=== PATIENT | female | born 1930 | race Caucasian/White ===

== ENCOUNTER 2017-11-18 10:05 | Observation (INO) | payer MEDICARE, BC ==
[2017-11-18] MEDS ORDERED: SODIUM CHLORIDE 0.9% 1,000 ML IV ONE (11:06)
--- NOTE | 2017-11-18 11:16 | ED ---
Altered Mental Status HPI - General Chief Complaint: Altered Mental Status Stated Complaint: Confusion Time Seen by Provider: 11/18/17 10:41 Source: patient Mode of arrival: wheelchair Limitations: no limitations - History of Present Illness Initial Comments: Patient is an 87-year-old female with a history of dementia who presents with chief complaint of altered mental status. She is here with her son who provides most of the history. The patient lives at a snf facility. The son states the patient has been displaying odd behavior such as continuously looking for water, and being more forgetful. The patient states that she knows something is off. She cannot think of any inciting incidents of this. There are no aggravating or alleviating factors. Timing is constant. - Related Data Home Medications Medication Instructions Recorded Confirmed Alendronate Sodium [Fosamax] 70 mg PO CARRERA 11/18/17 11/18/17 Aspirin EC [Ecotrin Low Dose] 81 mg PO DAILY 11/18/17 11/18/17 Atorvastatin Calcium [Lipitor] 10 mg PO DAILY 11/18/17 11/18/17 Calcium Carbonate/Vitamin D3 1 tab PO HS 11/18/17 11/18/17 [Calcium 600-Vit D3 400 [place]] Cholecalciferol [Vitamin D3] 1,000 unit PO DAILY 11/18/17 11/18/17 Cilostazol [Pletal] 50 mg PO BID 11/18/17 11/18/17 Donepezil [Aricept] 10 mg PO DAILY 11/18/17 11/18/17 Lisinopril [Prinivil] 10 mg PO DAILY 11/18/17 11/18/17 Multivit-Min/FA/Lycopen/Lutein 1 tab PO HS 11/18/17 11/18/17 [Centrum Silver Tablet] amLODIPine [Norvasc] 5 mg PO DAILY 11/18/17 11/18/17 Allergies Allergy/AdvReac Type Severity Reaction Status Date / Time No Known Allergies Allergy Verified 11/18/17 11:43 Review of Systems ROS Statement: Those systems with pertinent positive or pertinent negative responses have been documented in the HPI. ROS Other: All systems not noted in ROS Statement are negative. 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 removed History of Any Multi-Drug Resistant Organisms: None Reported Past Surgical History: No Surgical Hx Reported Past Psychological History: No Psychological Hx Reported Smoking Status: Never smoker Past Alcohol Use History: None Reported Past Drug Use History: None Reported General Exam Limitations: no limitations General appearance: alert, in no apparent distress Head exam: Present: atraumatic, normocephalic Eye exam: Present: normal appearance ENT exam: Present: normal exam, mucous membranes moist Neck exam: Present: normal inspection Respiratory exam: Present: normal lung sounds bilaterally. Absent: respiratory distress Cardiovascular Exam: Present: regular rate, normal rhythm GI/Abdominal exam: Present: soft. Absent: distended, tenderness Rectal exam: Present: deferred Extremities exam: Present: normal inspection Neurological exam: Present: alert, altered, other (Patient is alert and oriented 1. She has no focal motor deficit. She is able to angulate well without assistance) Psychiatric exam: Present: normal affect, normal mood Skin exam: Present: warm, dry, intact Course Vital Signs 11/18/17 11/18/17 10:19 13:00 Temperature 97.8 F 98.2 F Pulse Rate 94 95 Respiratory 17 18 Rate Blood Pressure 104/51 170/79 O2 Sat by Pulse 97 97 Oximetry Medical Decision Making - Medical Decision Making Patient presents with a chief complaint of altered mental status. Initial evaluation, vital signs are stable, patient is in no acute distress. She is a and O 1. The patient is very cooperative with exam, she states that she knows that something is "off". Patient will be evaluated basic cardiac labs. Urinalysis was sent. Patient will go for a computed tomography scan of the head without contrast and chest x-ray. 2:31 PM Lab evaluation of this patient is unremarkable. Urinalysis shows evidence of infection. Patient was started on Rocephin. initial troponin is negative. I discussed this case with Dr. serra except admission of this patient for urinary tract infection and altered mental status. Neuro imaging is unremarkable. Patient family updated on the plan, they are agreeable. - Lab Data Result diagrams: 11/18/17 11:20 11/18/17 11:20 Lab Results 11/18/17 11/18/17 11/18/17 Range/Units 11:20 11:20 11:20 WBC 10.1 (3.8-10.6) k/uL RBC 4.60 (3.80-5.40) m/uL Hgb 14.3 (11.4-16.0) gm/dL Hct 40.9 (34.0-46.0) % MCV 89.0 (80.0-100.0) fL MCH 31.1 (25.0-35.0) pg MCHC 35.0 (31.0-37.0) g/dL RDW 13.1 (11.5-15.5) % Plt Count 296 (150-450) k/uL Neutrophils % 81 % Lymphocytes % 11 % Monocytes % 6 % Eosinophils % 1 % Basophils % 0 % Neutrophils # 8.2 H (1.3-7.7) k/uL Lymphocytes # 1.1 (1.0-4.8) k/uL Monocytes # 0.6 (0-1.0) k/uL Eosinophils # 0.1 (0-0.7) k/uL Basophils # 0.0 (0-0.2) k/uL Sodium 141 (137-145) mmol/L Potassium 4.5 (3.5-5.1) mmol/L Chloride 101 (98-107) mmol/L Carbon Dioxide 31 H (22-30) mmol/L Anion Gap 9 mmol/L BUN 21 H (7-17) mg/dL Creatinine 0.97 (0.52-1.04) mg/dL Est GFR (CKD-EPI)AfAm 60 (>60 ml/min/1.73 sqM) Est GFR (CKD-EPI)NonAf 52 (>60 ml/min/1.73 sqM) Glucose 85 (74-99) mg/dL Calcium 10.8 H (8.4-10.2) mg/dL Magnesium 2.4 H (1.6-2.3) mg/dL Total Bilirubin 0.6 (0.2-1.3) mg/dL AST 31 (14-36) U/L ALT 33 (9-52) U/L Alkaline Phosphatase 87 (38-126) U/L Troponin I (0.000-0.034) ng/mL NT-Pro-B Natriuret Pep 101 pg/mL Total Protein 7.4 (6.3-8.2) g/dL Albumin 4.7 (3.5-5.0) g/dL Lipase 196 (23-300) U/L Urine Color Urine Appearance (Clear) Urine pH (5.0-8.0) Ur Specific [place] (1.001-1.035) Urine Protein (Negative) Urine Glucose (UA) (Negative) Urine Ketones (Negative) Urine Blood (Negative) Urine Nitrite (Negative) Urine Bilirubin (Negative) Urine Urobilinogen (<2.0) mg/dL Ur Leukocyte Esterase (Negative) Urine RBC (0-5) /hpf Urine WBC (0-5) /hpf Ur Squamous Epith Cells (0-4) /hpf Amorphous Sediment (None) /hpf Urine Bacteria (None) /hpf Hyaline Casts (0-2) /lpf Urine Mucus (None) /hpf 11/18/17 11/18/17 Range/Units 11:20 11:20 WBC (3.8-10.6) k/uL RBC (3.80-5.40) m/uL Hgb (11.4-16.0) gm/dL Hct (34.0-46.0) % MCV (80.0-100.0) fL MCH (25.0-35.0) pg MCHC (31.0-37.0) g/dL RDW (11.5-15.5) % Plt Count (150-450) k/uL Neutrophils % % Lymphocytes % % Monocytes % % Eosinophils % % Basophils % % Neutrophils # (1.3-7.7) k/uL Lymphocytes # (1.0-4.8) k/uL Monocytes # (0-1.0) k/uL Eosinophils # (0-0.7) k/uL Basophils # (0-0.2) k/uL Sodium (137-145) mmol/L Potassium (3.5-5.1) mmol/L Chloride (98-107) mmol/L Carbon Dioxide (22-30) mmol/L Anion Gap mmol/L BUN (7-17) mg/dL Creatinine (0.52-1.04) mg/dL Est GFR (CKD-EPI)AfAm (>60 ml/min/1.73 sqM) Est GFR (CKD-EPI)NonAf (>60 ml/min/1.73 sqM) Glucose (74-99) mg/dL Calcium (8.4-10.2) mg/dL Magnesium (1.6-2.3) mg/dL Total Bilirubin (0.2-1.3) mg/dL AST (14-36) U/L ALT (9-52) U/L Alkaline Phosphatase (38-126) U/L Troponin I <0.012 (0.000-0.034) ng/mL NT-Pro-B Natriuret Pep pg/mL Total Protein (6.3-8.2) g/dL Albumin (3.5-5.0) g/dL Lipase (23-300) U/L Urine Color Yellow Urine Appearance Cloudy H (Clear) Urine pH 8.5 H (5.0-8.0) Ur Specific [place] 1.016 (1.001-1.035) Urine Protein 1+ H (Negative) Urine Glucose (UA) Negative (Negative) Urine Ketones Negative (Negative) Urine Blood Trace H (Negative) Urine Nitrite Negative (Negative) Urine Bilirubin Negative (Negative) Urine Urobilinogen 8.0 (<2.0) mg/dL Ur Leukocyte Esterase Moderate H (Negative) Urine RBC 13 H (0-5) /hpf Urine WBC 27 H (0-5) /hpf Ur Squamous Epith Cells 6 H (0-4) /hpf Amorphous Sediment Rare H (None) /hpf Urine Bacteria Rare H (None) /hpf Hyaline Casts 3 H (0-2) /lpf Urine Mucus Occasional H (None) /hpf Disposition Clinical Impression: Altered mental status, UTI (urinary tract infection) Disposition: ADMITTED IP TO THIS HOSP Condition: Good Instructions: Altered Mental Status (ED) Referrals: Derick Young MD [Primary Care Provider] - 1-2 days Decision to Admit Reason: Admit from [facility] - Out of Hospital Transfer - Req. Specs Out of Hospital Transfer - Requested Specifics: Other Non-Acute
[2017-11-18 11:34] LABS: Basophils % (A) 0 %; Eosinophils # (A) 0.1 k/uL (0-0.7); Eosinophils % (A) 1 %; HCT 40.9 % (34.0-46.0); HGB 14.3 gm/dL (11.4-16.0); Lymphocytes # (A) 1.1 k/uL (1.0-4.8); Lymphocytes % (A) 11 %; MCH 31.1 pg (25.0-35.0); Mean Platelet Volume 7.2; Monocytes # (A) 0.6 k/uL (0-1.0); Monocytes % (A) 6 %; Neutrophils # (A) 8.2 k/uL (1.3-7.7); Neutrophils % (A) 81 %; Platelet Count 296 k/uL (150-450); RDW 13.1 % (11.5-15.5); WBC 10.1 k/uL (3.8-10.6)
[2017-11-18 11:45] LABS: Amorphous Sediment,Urine Rare /hpf; Appearance,Urine Cloudy (Clear); Bacteria,Urine Rare /hpf; Bilirubin,Urine Negative (Negative); Blood,Urine Trace (Negative); Color,Urine Yellow; Glucose,Urine (UA) Negative (Negative); Hyaline Casts,Urine 3 /lpf (0-2); Ketones,Urine Negative (Negative); Leukocyte Esterase,Urine Moderate (Negative); Mucus,Urine Occasional /hpf; Nitrite,Urine Negative (Negative); PH, Urine 8.5 (5.0-8.0); Protein,Urine 1+ (Negative); RBC,Urine 13 /hpf (0-5); Specific Gravity,Urine 1.016 (1.001-1.035); Squamous Epithelial Cell,Urine 6 /hpf (0-4); WBC,Urine 27 /hpf (0-5)
[2017-11-18 11:51] LABS: Albumin 4.7 g/dL (3.5-5.0); Total Protein 7.4 g/dL (6.3-8.2)
[2017-11-18 11:52] LABS: Calcium 10.8 mg/dL (8.4-10.2); Magnesium 2.4 mg/dL (1.6-2.3); Potassium 4.5 mmol/L (3.5-5.1); Total Bilirubin 0.6 mg/dL (0.2-1.3)
[2017-11-18] MEDS ORDERED: cefTRIAXone IN SWFI 1,000 MG/10 ML SYRINGE IVP STA (12:08)
--- NOTE | 2017-11-18 12:52 | XR ---
EXAMINATION TYPE: XR chest 2V DATE OF EXAM: 11/18/2017 COMPARISON: NONE HISTORY: Altered mental status TECHNIQUE: Frontal and lateral views of the chest are obtained. FINDINGS: There is no focal air space opacity, pleural effusion, or pneumothorax seen. The cardiac silhouette size is within normal limits. Patient is rotated. Increased retrosternal airspace could b e indicative of underlying COPD. The aorta is dense. The osseous structures are intact. IMPRESSION: No acute cardiopulmonary process.
--- NOTE | 2017-11-18 12:53 | CT ---
EXAMINATION TYPE: CT brain wo con DATE OF EXAM: 11/18/2017 COMPARISON: NONE HISTORY: Confusion CT DLP: 892.1 mGycm Automated exposure control for dose reduction was used. FINDINGS: There is extensive periventricular low attenuation moderate to severe generalized degenerative change . No midline shift or mass effect. No acute intracranial hemorrhage. Intracranial atherosclerotic andrade es noted. Calvarium intact. IMPRESSION: DEGENERATIVE AND NONSPECIFIC WHITE MATTER CHANGES WITH NO EVIDENCE OF ACUTE INTRACRANIAL HEMORRHAGE O R MASS EFFECT.
[2017-11-18] MEDS ORDERED: ACETAMINOPHEN TAB 325 MG TAB PO PRN (14:27)
[2017-11-18] MEDS ORDERED: NALOXONE 0.4 MG/ML 1 ML VIAL IV PRN ×2 (14:27→18:11)
[2017-11-18] MEDS ORDERED: LACTULOSE 20 GM/30 ML CUP PO PRN (18:11)
[2017-11-18] MEDS ORDERED: ONDANSETRON 4 MG/2 ML VIAL IVP PRN (18:11)
[2017-11-18] MEDS ORDERED: LORazepam 0.5 MG TAB PO PRN (18:11)
[2017-11-18] MEDS ORDERED: CALCIUM CARBONATE 500 MG CHEWABLE PO PRN (18:11)
[2017-11-18] MEDS ORDERED: Acetaminophen-Codeine 300-30mg TAB PO PRN (18:11)
[2017-11-18] MEDS ORDERED: MELATONIN 3 MG TABLET PO PRN (18:11)
[2017-11-18] MEDS: ENOXAPARIN 40 MG/0.4 ML SYRINGE SQ SCH (21:41)
[2017-11-18] MEDS: CILOSTAZOL 100 MG TAB PO SCH (21:41)
[2017-11-18] MEDS: QUEtiapine 25 MG TAB PO SCH (21:41)
[2017-11-18] MEDS ORDERED: LACTATED RINGERS 1,000 ML IV SCH (22:30)
--- NOTE | 2017-11-18 23:18 | HP ---
HISTORY AND PHYSICAL DATE OF ADMISSION: 11/18/2017 PRESENTING COMPLAINT: Abnormal activity. HISTORY OF PRESENTING COMPLAINT: This is an 87-year-old patient of Dr. Young. Lives in assisted living. Chronic stable medical conditions are that of hypertension, hypercholesteremia, dementia. The patient was brought in because of the patient noticed to be doing odd activities such as looking for water, becoming more forgetful, looking under bed, etc. The patient is not able to give much of a history to me and does not know why she is here or what she is here for. The patient is found to have a significant UTI in the ER, started on IV ceftriaxone for the same. The patient has a history of otherwise dementia. Denies any pain. No cough. The patient really cannot tell me much about any urinary symptoms. REVIEW OF SYSTEMS: CONSTITUTIONAL: None. HEENT: Some decreased hearing. RESPIRATORY: None. CARDIOVASCULAR: None. GASTROINTESTINAL: None. MUSCULOSKELETAL: Some pain in joints. DERMATOLOGICAL: None. HEMATOLOGIC: None. LYMPHATIC: None. PSYCHIATRY: Forgetful. NEUROLOGICAL: No focal symptoms. PAST MEDICAL HISTORY: Hypertension, hypercholesteremia, dementia, skin cancer of the legs. PAST SURGICAL HISTORY: None. SOCIAL HISTORY: No smoking, no alcohol, lives in assisted living. FAMILY HISTORY: Patient not able to tell. HOME MEDICATIONS: 1. Aspirin 81 mg a day. 2. Centrum Silver 1 tablet p.o. q.h.s. 3. Vitamin D3 1000 units p.o. daily. 4. Prinivil 10 mg p.o. daily. 5. Aricept 10 mg p.o. daily. 6. Pletal 50 mg b.i.d. 7. Calcium 600. 8. Vitamin D3 1 tablet p.o. q.h.s. 9. Norvasc 5 mg p.o. daily. 10.Lipitor 10 mg p.o. daily. 11.Fosamax 70 mg p.o. ALLERGIES: None. EXAMINATION: VITAL SIGNS: On presentation, afebrile, pulse 94, respirations 17, blood pressure 104/51, pulse ox 97% on room air. GENERAL APPEARANCE: Thin build, sitting up in bed, somewhat anxious, looking about. EYES: Pupils equal. Conjunctivae normal. HEENT: External nose and ears normal. Oral cavity normal. NECK: JVD not raised. Mass not palpable. RESPIRATORY: Effort normal. LUNGS: Fair air entry. CARDIOVASCULAR: First and second sounds normal. No edema. ABDOMEN: Soft, nontender. Liver and spleen not palpable. LYMPHATIC: No lymph nodes palpable in neck or axillae. PSYCHIATRY: Knows her name, does not know why she is here or what place this is, does not know the year. MUSCULOSKELETAL: Evidence of osteoarthritis, especially in the hands and knees. INVESTIGATION: White count 10.1, hemoglobin 14.3. Potassium 4.5, BUN 21, creatinine 0.91. UA positive for leuko esterase, WBC. ASSESSMENT: 1. Acute delirium, probably from underlying urinary tract infection. 2. Acute urinary tract infection. 3. Alzheimer dementia, late onset type. 4. Essential hypertension. 5. Hypercholesteremia. 6. Primary osteoarthritis, especially of the hands and knees. PLAN: Patient is started on IV ceftriaxone. Will also add Seroquel at night. Home medications are resumed. We will also hydrate the patient. Will keep a close eye on the patient. The patient did have a CT scan of the brain in the ER that showed some chronic findings. MMODL / IJN: [id number] /
[2017-11-19] MEDS: amLODIPine 5 MG TAB PO SCH (07:56)
[2017-11-19] MEDS: LISINOPRIL 10 MG TAB PO SCH (07:56)
[2017-11-19] MEDS: ASPIRIN 81 MG PO SCH (07:56)
[2017-11-19] MEDS: ATORVASTATIN 10 MG TAB PO SCH (07:56)
[2017-11-19] MEDS: CILOSTAZOL 100 MG TAB PO SCH ×2 (07:56→20:46)
[2017-11-19] MEDS: DONEPEZIL 10 MG TAB PO SCH (07:56)
[2017-11-19] MEDS: ENOXAPARIN 40 MG/0.4 ML SYRINGE SQ SCH (07:57)
[2017-11-19] MEDS: cefTRIAXone IN SWFI 1,000 MG/10 ML SYRINGE IVP SCH (11:11)
--- NOTE | 2017-11-19 13:48 | PN ---
PROGRESS NOTE DATE OF SERVICE: 11/19/2017 PRESENTING COMPLAINT: Confusion. INTERVAL HISTORY: This patient presented with acute delirium, felt to be from UTI. Patient has underlying dementia, started on Seroquel, did sleep well last night. Did tolerate her breakfast. Pleasantly confused, to be up in the hallway. No family was present when I saw the patient this morning. REVIEW OF SYSTEMS: Attempted for constitutional, cardiovascular, GI, pulmonary; relevant findings as above. CURRENT MEDICATIONS: Reviewed that include IV ceftriaxone. EXAMINATION: Temperature 98.4, pulse 91, respirations 18, blood pressure 109/65, pulse ox 96% on room air. GENERAL APPEARANCE: Lying in bed, comfortable. EYES: Pupil equal. Conjunctivae normal. HEENT: External nose and ears normal. Oral cavity normal. NECK: JVD not raised. Mass not palpable. RESPIRATORY: Effort normal. Lungs are clear. CARDIOVASCULAR: First and second sounds normal. No edema. ABDOMEN: Soft, nontender. Liver, spleen not palpable. The patient can only answer her name, does not know why she is here or what she is here for. INVESTIGATIONS: No blood work today. Urine cultures pending. ASSESSMENT: 1. Acute delirium, probably from underlying urinary tract infection, present on admission,. 2. Acute urinary tract infection. 3. Alzheimer dementia, late onset type. 4. Essential hypertension. 5. Hypercholesterolemia. 6. Primary osteoarthritis, especially of the hands and knees. PLAN: Continue IV antibiotic. Await culture results. home worker to be involved. Prognosis guarded. MMODL / IJN: [id number] /
[2017-11-19] MEDS: QUEtiapine 25 MG TAB PO SCH (20:46)
[2017-11-20] MEDS: ATORVASTATIN 10 MG TAB PO SCH (07:40)
[2017-11-20] MEDS: LISINOPRIL 10 MG TAB PO SCH (07:40)
[2017-11-20] MEDS: ASPIRIN 81 MG PO SCH (07:40)
[2017-11-20] MEDS: DONEPEZIL 10 MG TAB PO SCH (07:40)
[2017-11-20] MEDS: ENOXAPARIN 40 MG/0.4 ML SYRINGE SQ SCH (07:41)
[2017-11-20] MEDS: CILOSTAZOL 100 MG TAB PO SCH ×2 (07:41→20:42)
[2017-11-20] MEDS: amLODIPine 5 MG TAB PO SCH (07:41)
[2017-11-20 09:44] LABS: Calcium 9.5 mg/dL (8.4-10.2); Potassium 3.7 mmol/L (3.5-5.1)
[2017-11-20] MEDS: cefTRIAXone IN SWFI 1,000 MG/10 ML SYRINGE IVP SCH (11:05)
--- NOTE | 2017-11-20 18:47 | PN ---
PROGRESS NOTE DATE OF SERVICE: November 20, 2017. PRESENTING COMPLAINT: Confusion. INTERVAL HISTORY: This patient presented with acute delirium, felt to be from urinary tract infection. Patient also has got underlying dementia. Did sleep well last night. Confusion is there. Patient's son who was out of town is present today at the bedside. The patient did tolerate a diet. Overall doing better. REVIEW OF SYSTEMS: Done for constitutional, cardiovascular, GI, pulmonary; relevant findings as above. CURRENT MEDICATIONS: Reviewed that include IV ceftriaxone. PHYSICAL EXAMINATION: Afebrile, pulse 89, respiratory 18, blood pressure 97/53, pulse ox 96% on room air. General appearance: Sitting up in a chair, comfortable. Eyes pupils are equal. Conjunctivae normal. HEENT external appearance of nose and ears normal. Oral cavity normal. Neck JVD not raised. Mass not palpable. Respiratory effort: Lungs are clear. CARDIOVASCULAR: First and second sounds normal. No edema. Abdomen soft and nontender. Liver and spleen not palpable. Psychiatry: The patient is answering simple questions. INVESTIGATIONS: BUN 22, creatinine 0.85, calcium 9.5. Urine culture, gram-negative bacilli. ASSESSMENT: 1. Acute delirium probably from underlying urinary tract infection present on admission. 2. Acute urinary tract infection from gram-negative bacilli cultures pending. 3. Alzheimer's dementia late onset type. 4. Essential hypertension. 5. Hypercholesteremia. 6. Primary osteoarthritis especially of the hands and knees. 7. Hypercalcemia, likely from dehydration improved. PLAN: I had a talk with the son at the bedside. The patient will go back to [facility]. He is arranging for additional help. This should happen by tomorrow. Await cultures before we finalize oral antibiotics. Other medications to continue. MMODL / IJN: [id number] /
[2017-11-20] MEDS: QUEtiapine 25 MG TAB PO SCH (20:42)
[2017-11-20 23:58] VITALS: RESP 16
[2017-11-21 06:38] VITALS: BP 143/54; PULSE 85; TEMP 97.4
[2017-11-21] MEDS: CILOSTAZOL 100 MG TAB PO SCH (08:47)
[2017-11-21] MEDS: DONEPEZIL 10 MG TAB PO SCH (08:47)
[2017-11-21] MEDS: ASPIRIN 81 MG PO SCH (08:48)
[2017-11-21] MEDS: ENOXAPARIN 40 MG/0.4 ML SYRINGE SQ SCH (08:48)
[2017-11-21] MEDS: ATORVASTATIN 10 MG TAB PO SCH (08:48)
[2017-11-21] MEDS: LISINOPRIL 10 MG TAB PO SCH (08:48)
[2017-11-21] MEDS: amLODIPine 5 MG TAB PO SCH (08:50)
[2017-11-21 09:45] LABS: Calcium 9.5 mg/dL (8.4-10.2); Potassium 3.7 mmol/L (3.5-5.1)
[2017-11-21] MEDS: cefTRIAXone IN SWFI 1,000 MG/10 ML SYRINGE IVP SCH (11:20)
--- NOTE | 2017-11-21 17:42 | DS ---
DISCHARGE SUMMARY DATE OF ADMISSION: 11/18/2017 DATE OF DISCHARGE: 11/21/2017 FINAL DIAGNOSES: 1. Acute delirium from underlying urinary tract infection. 2. Acute urinary tract infection from Gram-negative bacilli/Escherichia coli, present on admission. 3. Alzheimer's dementia, late onset type. 4. Essential hypertension. 5. Hypercholesteremia. 6. Primary osteoarthritis, especially of the hands and knees. 7. Hypercalcemia, likely from dehydration, corrected. HOSPITAL COURSE: This very pleasant elderly lady presented with a UTI from E coli with delirium that actually improved. The patient did get IV fluids. The patient will be going back to [facility] with some additional social help. I spoke to her son today and his . Questions were answered. I did emphasize reinforcing patient's sleep cycle, especially that patient is not to be woken up after she gets the Seroquel at night and also to have a defined nap in the afternoon, which is more physiological and really enhances patient's quality of life and sleep cycle. On examination, lungs are clear. CARDIOVASCULAR: First and second sounds normal. No edema. Patient is actually sitting up in a chair playing cards with her son. She is pleasant, able to carry on a simple conversation. Discussion and discharge planning more than 35 minutes. DISCHARGE MEDICATIONS: 1. Fosamax 70 mg p.o. on Tuesday. 2. Aspirin 81 mg p.o. daily. 3. Lipitor 10 mg p.o. daily. 4. Calcium 600 with vitamin D3 400 one tablet p.o. at bedtime. 5. Pletal 550 mg p.o. b.i.d. 6. Aricept 10 mg p.o. daily. 7. Prinivil 10 mg p.o. daily. 8. Centrum Silver 1 tablet p.o. at bedtime. 9. Norvasc 5 mg p.o. daily. 10.Keflex 250 mg q.8; total of 6 capsules. 11.Seroquel 25 mg p.o. at bedtime. This is a new medication. DISPOSITION: [facility]. FOLLOWUP: Follow up with Dr. Young in 3 days. [facility] visiting nurse on the case. MMODL / IJN: [id number] /
== END 2017-11-21 14:39 | disposition home health service (06) ==
LOC: EC 10:05 → 4MS4W 14:28
PROVIDERS: ADMIT Hospitalist; ATTEND Hospitalist
DX: N39.0 Urinary tract infection, site not specified (principal); B96.20 Unspecified Escherichia coli [E. coli] as the cause of diseases classified elsewhere; R41.0 Disorientation, unspecified; G30.1 Alzheimer's disease with late onset; F02.80 Dementia in other diseases classified elsewhere, unspecified severity, without behavioral disturbance, psychotic disturbance, mood disturbance, and anxiety; I10 Essential (primary) hypertension; E78.00 Pure hypercholesterolemia, unspecified; E83.52 Hypercalcemia; M17.0 Bilateral primary osteoarthritis of knee; M19.042 Primary osteoarthritis, left hand; M19.041 Primary osteoarthritis, right hand; Z79.82 Long term (current) use of aspirin; Z79.899 Other long term (current) drug therapy; Z85.828 Personal history of other malignant neoplasm of skin; Z86.73 Personal history of transient ischemic attack (TIA), and cerebral infarction without residual deficits
CPT/HCPCS: 99285 ×2; 96374 ×2; 96361 ×4; 96376 ×3; 96372 ×4; 36415; 93005; 83880; 80053; 80048 ×2; 83690; 83735; 84484; 85025; 81001; 87086; 87077; 87186; 71046; 70450; G0378 ×4; J1650 ×4; J0696 ×4